=== PATIENT | male | born 1990 | race Two or more races ===

== ENCOUNTER 2022-07-11 10:48 | Emergency (ER) | payer SELFPAY ==
[~2022-07-11] VITALS: Ht 167.6 cm; Wt 68.0 kg
[2022-07-11 11:00] VITALS: BP 110/60
--- NOTE | 2022-07-11 11:10 | NUR ---
patient verbalized "i am not suicidal"
--- NOTE | 2022-07-11 11:50 | NUR ---
No Longer in the room/guerney. Eloped
--- NOTE | 2022-07-11 11:53 | NUR ---
Dr Wharton made aware
== END 2022-07-11 11:48 | disposition left against medical advice (07) ==
LOC: ER 11:48
DX: Z53.21 Procedure and treatment not carried out due to patient leaving prior to being seen by health care provider (principal)